=== PATIENT | female | born 1955 | race Caucasian/White ===

== ENCOUNTER 2019-07-06 05:15 | Day surgery (SDC) | payer BC, OTHER ==
[~2019-07-06] VITALS: Ht 172.7 cm; Wt 105.2 kg
--- NOTE | ~2019-07-06 | O ---
[facility] [place] [address] OPERATIVE REPORT Name: OSCAR MARTINEZ Room #: 150-2 [facility] M.R.#: [id number] Admission: 07/06/19 ������������������ Attend Phys: Alice Petit, Discharge: ������������������ Date of : 53 Report #: [id number] THIS REPORT FOR: //name// CC: Maria Elena Petit DATE OF SERVICE: 07/06/2019 PREOPERATIVE DIAGNOSIS: Right carpal tunnel syndrome. POSTOPERATIVE DIAGNOSIS: Right carpal tunnel syndrome. PROCEDURE PERFORMED: Right endoscopic carpal tunnel release. SURGEON: Dr. Alice Petit. ANESTHESIA: General mask anesthesia. ESTIMATED BLOOD LOSS: Minimal. TOURNIQUET TIME: 15 minutes. COMPLICATIONS: None. CONDITION: Stable. DISPOSITION: Recovery room. INDICATIONS: The patient is a 63-year-old female with the above-mentioned diagnosis. She elects for operative treatment. The risks, benefits, alternatives and complications were discussed including but not limited to infection, damage to vessels or nerves, incomplete relief of her symptoms or worsening of any symptoms. Informed consent was obtained. The correct extremity was identified and labeled by myself after verbal confirmation of the patient as well as visual confirmation and signed informed consent. In the preoperative holding area, I evaluated her trigger fingers. She did not have any tenderness, locking, or clicking of any of her digits. We elected to not perform any trigger finger surgery. DESCRIPTION OF PROCEDURE: The patient was brought back to the operating room, placed on the operating table in supine position. She received preoperative antibiotics. Tourniquet placed over padding on the patient's right upper extremity. The right extremity was sterilely prepped and draped in the usual fashion. Final timeout was taken to verify correct patient, operative procedure, operative site, all concurred. The arm was elevated, exsanguinated and tourniquet inflated. The entire procedure was done with the aid of [address] [place] [id number] OPERATIVE REPORT Name: OSCAR MARTINEZ Room #: 150-2 [facility] M.R.#: [id number] Admission: 07/06/19 ������������������ Attend Phys: Alice Petit, Discharge: ������������������ Date of : 53 Report #: [id number] times loupe magnification. Next, a transverse incision was made at few millimeters proximal to distal wrist crease in line with ulnar border of the palmaris longus tendon. Dissection was carried down through subcutaneous tissue with tenotomy scissors. The antebrachial fascia was identified and incised. An oblique incision was made at distal hook of hamate in line with the ring finger. The fat was elevated off the fascia. The fascia was carefully incised. Next, a Dundalk elevator was placed through the carpal tunnel from proximal to distal to elevate any synovial tissue off the undersurface of the transverse carpal ligament. The blunt trocar and cannula was inserted with the wrist in maximal extension and digital pressure distally. The trocar was removed. The camera was inserted and nice transverse fibers of the undersurface of the transverse carpal ligament were easily identified. A hook ablator was brought in distally and the transverse carpal ligament was transected distally. Next, the camera was inserted distally and the transverse carpal ligament transected proximally. Next, the camera and cannula were withdrawn and visualized the cut ends of the transverse carpal ligament. Each wound was explored. There was approximately 1 cm transverse carpal ligament that remained distally. This was incised under direct visualization. The release was all away from the antebrachial fascia in the forearm all the way through the fat in the palm. Dundalk elevator was placed through the carpal tunnel and no remnants of the transverse carpal ligament remained. The entire procedure was done with the aid of 3.5 loupe magnification. The nerve looked to be in excellent condition. The wounds were thoroughly irrigated. Skin was closed with 4-0 nylon suture. Wounds were dressed with Adaptic and sterile gauze. She was placed in a bulky dressing. All fingers were pink with brisk capillary refill at the conclusion of the case after deflation of tourniquet. All sponge and needle counts were correct. The patient was transferred to postoperative recovery room in stable condition. ��������������������������������������������� ���������������������������������������� By: ��������������������������������������������� [id number] Alice Petit MD /[email or web address]
[~2019-07-06 05:15] MED LIST: ACETAMINOPHEN325 M1 PO; ADULT LOW DOSE81 MG PO; ADVIL100 M2 PO; ADVIL200 M3 PO; CALCIUM OYSTER500 MG PO; CLARITIN10 M2 PO; COLACE100 MG PO; COUMADIN 2 MG TA2 M1 PO; COUMADIN 5 MG TA5 M1 PO; CRESTOR10 MG PO; FISH OIL 1,0001 EAC5 PO; HYDROCHLOROTH12.5 M1 PO; IRON325 M1 PO; LOVENOX40 MG/0.4 SQ; NORCO 5-325 TA1 EACH PO; OMEGA 3 1,0001 EACH PO; OMEPRAZOLE20 M1 PO; PEPCID40 MG PO; PROZAC40 MG PO; VIIBRYD40 MG PO; VITAMIN D32000 UNIT PO; WELLBUTRIN SR150 MG PO; WELLBUTRIN XL300 M1 PO; WELLBUTRIN XL300 MG PO
[2019-07-06 06:40] LABS: HEMATOCRIT 42.3 % (37.0-47.0); HEMOGLOBIN 14.3 gm/dL (12.0-15.0); MCH 29.6 pg (26.0-34.0); MCHC 33.8 g/dL (28.0-37.0); MCV 87.7 fL (80.0-100.0); RBC 4.83 mil/uL (4.20-5.00); RDW 13.7 % (10.5-14.5); WBC 7.4 thou/uL (4.0-11.0)
[2019-07-06 06:52] LABS: CALCIUM 9.8 mg/dL (8.5-10.1); POTASSIUM 3.9 mmol/L (3.5-5.1)
[2019-07-06 07:33] VITALS: BP 132/76
[2019-07-06 08:29] VITALS: BP 132/76
== END 2019-07-06 10:40 | disposition home or self-care (01) ==
LOC: OR 05:15 → TBA 05:15 → OR 10:40
PROVIDERS: Orthopaedic Surgery Hand Surgery
DX: G56.01 Carpal tunnel syndrome, right upper limb (principal); I10 Essential (primary) hypertension; K21.9 Gastro-esophageal reflux disease without esophagitis; F32.9 Major depressive disorder, single episode, unspecified; F41.9 Anxiety disorder, unspecified; G47.30 Sleep apnea, unspecified; Z86.2 Personal history of diseases of the blood and blood-forming organs and certain disorders involving the immune mechanism; Z85.3 Personal history of malignant neoplasm of breast; Z90.710 Acquired absence of both cervix and uterus; Z98.890 Other specified postprocedural states; Z88.2 Allergy status to sulfonamides; Z88.6 Allergy status to analgesic agent; Z79.899 Other long term (current) drug therapy
CPT/HCPCS: 50010; 50101; 50386; 56526; 56969; 57006; 57091; 57178; 57179; 62110; 62900; 70005